=== PATIENT | female | born 1975 | race Caucasian/White ===

== ENCOUNTER 2024-07-23 20:19 | Emergency (ER) | payer OTHER, SELFPAY ==
[2024-07-23 20:20] VITALS: BP 132/78; PULSE 87; RESP 18; TEMP 36.9; O2SAT 98; BMI 28.3
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
[2024-07-23 20:38] VITALS: BP 127/77; PULSE 85; RESP 17; O2SAT 100
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
[2024-07-23] MEDS: iohexol 350 mg/mL 500 mL Btl (per mL) IV (20:51)
[2024-07-23 20:55] LABS: Charge for UA Resulting for Rev
[2024-07-23 20:57] LABS: Bilirubin Urine Negative (Negative); Blood Urine 1+ (Negative); Glucose Urine UA Negative (Normal); Ketones Urine Negative (Negative); Leukocyte Esterase Urine Trace (Negative); Nitrate Urine Negative (Negative); Protein Urine Negative (Negative); Specific Gravity, Urine 1.004 (1.005-1.030); Urine Appearance Clear (CLEAR); Urine Color Yellow (Yellow); Urobilinogen Urine 0.2 mg/dL (Negative); pH Urine 5.5 (5-7)
[2024-07-23 21:02] LABS: Bacteria Urine 4+ /hpf; RBC Urine 0-2 /hpf (0-2); Squamous Epithelial Cell Urine 0-5 /hpf (0-5); WBC Urine 0-5 /hpf (0-5)
[2024-07-23 21:22] LABS: Basophils # 0.1 10^3/uL (0.0-0.1); Basophils % 0.6 %; Eosinophils # 0.2 10^3/uL (0.0-0.8); Eosinophils % 1.2 %; Lymphocytes # 2.4 10^3/uL (0.8-4.8); Lymphocytes % 17.2 %; Mean Corpuscular HGB Conc 33.4 g/dL (30-55); Mean Corpuscular Hemoglobin 32.2 pg (27-33); Mean Corpuscular Volume 96.4 fl (85-98); Mean Platelet Volume 10.4 fL (7.4-10.4); Monocytes # 1.1 10^3/uL (0.2-0.9); Monocytes % 8.2 %; Neutrophils # 10.08 10^3/uL (1.8-7.7); Neutrophils % 72.6 %; Nucleated Red Blood Cells % 0 %; Platelet Count 353 10^3/cmm (157-399); Red Blood Count 3.32 10^6/uL (3.85-5.65); Red Cell Distribution Width 12.7 % (12.1-15.1); White Blood Count 13.88 10^3/uL (3.29-11.43)
[2024-07-23] MEDS: LORazepam 2 mg/mL INJ 1 mL 1 MG IVP (21:25)
[2024-07-23 21:43] LABS: Alanine Aminotransferase 13 U/L (0-33); Albumin Level 3.9 g/dL (3.5-5.2); Alkaline Phosphatase 46 U/L (35-105); Anion Gap 15.4 (5-19); Aspartate Amino Transferase 15 U/L (0-32); Blood Urea Nitrogen 11 mg/dL (6-20); Calcium 8.7 mg/dL (8.5-10.5); Carbon Dioxide 21 mmol/L (22-29); Chloride 104 mmol/L (98-107); Creatinine Clr Calc Pharmacy 64.9633; Globulin 2.2 g/dL (1.3-4.6); Glomerular Filtration Rate 58.9 mL/min (90-130); Glucose 87 mg/dL (65-115); Osmolality Calculated 283 mOsm/kg (285-295); Potassium 3.4 mmol/L (3.5-5.1); Sodium 137 mmol/L (136-145); Total Bilirubin 0.5 mg/dL (0.15-1.2); Total Protein 6.1 g/dL (6.6-8.7)
[2024-07-23 21:49] LABS: Alcohol Level < 10 mg/dL (0-10); HCG, Serum Qual Negative (Negative)
[2024-07-23] MEDS: morphine 4 mg/mL SDV 1 mL IVP (21:49)
[2024-07-23] MEDS: ondansetron 2 mg/ML SDV 2 mL 4 MG IVP (21:49)
[2024-07-23 21:56] VITALS: BP 129/58; PULSE 100; RESP 22; O2SAT 99
[2024-07-23 22:18] VITALS: BP 143/75; PULSE 91; RESP 14; O2SAT 100
[2024-07-23 22:31] VITALS: BP 143/76; PULSE 84; RESP 12; O2SAT 96
== END 2024-07-23 22:32 | disposition home or self-care (01) ==
PROVIDERS: Emergency Provider Emergency Medicine
DX: S20.212A Contusion of left front wall of thorax, initial encounter (principal); V89.2XXA Person injured in unspecified motor-vehicle accident, traffic, initial encounter
CPT/HCPCS: 36415; 70450; 71260; 72125; 74177; 80053; 80307; 81003; 81015; 84703; 85025; 96374; 96375; 99285; J2060; J2270; J2405